=== PATIENT | male | born 1945 | race Caucasian/White ===

== ENCOUNTER 2016-08-10 08:28 | Inpatient (IN) | payer OTHER, BC ==
[~2016-08-10] VITALS: Ht 185.4 cm; Wt 108.0 kg
[~2016-08-10 08:28] MED LIST: ADVIL100 M2 PO; ASPIRIN325 PO; AUGMENTIN 875875 M1 PO; CARDIZEM CD240 MG PO; COZAAR100 MG PO; DILTIAZEM ER120 M2 PO; FISH OIL 1,001000 M2 PO; FLECAINIDE ACE100 MG PO; LIPITOR10 MG PO; MULTI VITAMIN1 EACH PO; PAIN & FEVER325 MG PO; VITAMIN B122500 MCG PO; VITAMIN D2000 UNIT PO
[2016-12-22] MEDS ORDERED: ELIQUIS5 MG PO (15:18)
[2016-12-28] MEDS ORDERED: LIPITOR80 MG PO (08:33)
[2016-12-28 08:41] LABS: HEMATOCRIT 42.2 % (42.0-52.0); HEMOGLOBIN 14.5 gm/dL (14.0-18.0); MCH 31.9 pg (26.0-34.0); MCHC 34.3 g/dL (28.0-37.0); MCV 92.9 fL (80.0-100.0); RBC 4.54 mil/uL (4.50-6.00); RDW 14.2 % (10.5-14.5); WBC 5.3 thou/uL (4.0-11.0)
[2016-12-28 08:51] LABS: ALBUMIN 3.8 g/dL (3.4-5.0); CALCIUM 9.3 mg/dL (8.5-10.1); CREATININE 1.5 mg/dL (0.7-1.3); POTASSIUM 4.2 mmol/L (3.5-5.1)
[2016-12-28 08:52] LABS: INR 1.1; PROTIME 11.8 Seconds (9.3-11.4); URINE BILIRUBIN NEGATIVE (Negative); URINE BLOOD 1+ (Negative); URINE COLOR YELLOW; URINE GLUCOSE-RANDOM* NEGATIVE (Negative); URINE KETONES NEGATIVE (Negative); URINE LEUKOCYTES-REFLEX NEGATIVE (Negative); URINE PROTEIN (DIPSTICK) NEGATIVE (Negative); URINE UROBILINOGEN 0.2 E.U./dl (0.2-1.0)
[2016-12-28 09:10] LABS: CASTS None Seen /LPF (None Seen); SQUAMOUS 0-3 Few /LPF (0-3)
[2016-12-28 09:15] LABS: CRYSTALS None Seen /LPF (None Seen); URINE RBC 0-2 Rare /HPF (0-2); URINE WBC-REFLEX 0-5 Rare /HPF (0-5)
[2017-01-10] VITALS (8 sets, daily range): BP systolic 103–133; BP diastolic 55–79
[2017-01-11] VITALS: BP 122/66
[2017-01-11 04:00] VITALS: BP 124/60
[2017-01-11 05:04] LABS: HEMOGLOBIN 12.4 gm/dL (14.0-18.0); MCH 32.6 pg (26.0-34.0); MCHC 35.3 g/dL (28.0-37.0); MCV 92.5 fL (80.0-100.0); RBC 3.78 mil/uL (4.50-6.00); WBC 10.5 thou/uL (4.0-11.0)
[2017-01-11 08:00] VITALS: BP 111/63
[2017-01-11] MEDS ORDERED: ELIQUIS2.5 MG PO (12:58)
[2017-01-11] MEDS ORDERED: HYDROCODONE-APA1 TA1 PO (12:58)
[2017-01-11 15:35] VITALS: BP 120/65
[2017-01-11 19:01] VITALS: BP 127/69
[2017-01-12] VITALS (7 sets, daily range): BP systolic 115–132; BP diastolic 74–77
[2017-01-12 05:29] LABS: HEMATOCRIT 33.9 % (42.0-52.0); HEMOGLOBIN 11.7 gm/dL (14.0-18.0); MCH 32.2 pg (26.0-34.0); MCHC 34.4 g/dL (28.0-37.0); MCV 93.7 fL (80.0-100.0); RBC 3.62 mil/uL (4.50-6.00); RDW 14.2 % (10.5-14.5); WBC 8.5 thou/uL (4.0-11.0)
[2017-01-12] MEDS ORDERED: CELECOXIB100 MG PO (11:38)
[2017-01-12] MEDS ORDERED: COLACE 100 MG100 MG PO (11:38)
[2017-01-12] MEDS ORDERED: NEURONTIN 300300 M1 PO (11:38)
== END 2017-01-12 12:30 | disposition home health service (06) | DRG 470 ==
LOC: PT 08:28 → EDSTATUS 14:17 → TBA 01-10 05:24 → 5S 01-10 05:24 → PRE 01-10 06:12 → 5S 01-10 10:08 → PRE 01-10 14:20 → 5S 01-12 12:30
PROVIDERS: Orthopaedic Surgery
PROC: 0SRD0J9 Replacement of Left Knee Joint with Synthetic Substitute, Cemented, Open Approach (ICD-10-PCS; principal; 2017-01-10)
DX: M17.12 Unilateral primary osteoarthritis, left knee (principal); I10 Essential (primary) hypertension; I48.91 Unspecified atrial fibrillation; Z96.651 Presence of right artificial knee joint; M19.079 Primary osteoarthritis, unspecified ankle and foot; Z88.8 Allergy status to other drugs, medicaments and biological substances; Z79.899 Other long term (current) drug therapy
CPT/HCPCS: 10785; 50010; 50101; 50415; 50612; 50954; 51130; 51225; 51320; 51412; 51771; 52001; 52282; 53000; 53078; 53364; 56525; 56527; 62110; 62900; 70005